=== PATIENT | male | born 1965 | race Caucasian/White ===

== ENCOUNTER 2024-09-29 17:38 | Emergency (ER) | payer OTHER, SELFPAY ==
[2024-09-29 17:46] VITALS: BP 116/87
[2024-09-29 17:55] VITALS: BP 104/81
[2024-09-29 18:00] VITALS: BP 116/74
[2024-09-29] MEDS: NSS 1000 IV (18:16)
[2024-09-29] MEDS: CARDIZEM 15 MG IV (18:17)
[2024-09-29 18:20] LABS: % Basophils 0.3 % (0-2); % Eosinophils 1.8 % (0-6); % Immature Granulocytes 0.5 % (0-0.5); % Lymphocytes 25.1 % (20.5-51.1); % Monocytes 5.7 % (1.7-9.3); % Neutrophils 66.6 % (42.2-75.2); Absolute Eosinophils 0.2 10^3/uL (0-0.7); Absolute Immature Granulocytes 0.1 10^3/uL (0-0.05); Absolute Lymphocytes 2.6 10^3/uL (1.2-3.4); Absolute Monocytes 0.6 10^3/uL (0.1-0.6); Absolute Neutrophils 6.8 10^3/uL (1.4-6.5); Hematocrit 45.9 % (39.0-52.0); Hemoglobin 15.6 g/dL (13.0-18.0); Mean Corpuscular Hgb 30.9 pg (27.0-31.0); Mean Corpuscular Volume 90.9 fL (80.0-94.0); Mean Platelet Volume 9.5 fL (7.4-10.4); Nucleated Red Blood Cells % 0 % (-); Platelet Count 248 10^3/uL (130-400); Red Blood Cell Count 5.05 10^6/uL (4.70-6.10); Red Cell Dist. Width 11.9 % (11.5-14.5); White Blood Cell Count 10.1 10^3/uL (4.8-10.8)
[2024-09-29 18:29] VITALS: BP 112/74
[2024-09-29 18:38] LABS: ALT (SGPT) 22 U/L (0-50); AST (SGOT) 27 U/L (17-59); Albumin 4.4 g/dl (3.5-5.0); Alkaline Phosphatase 69 U/L (38-126); Blood Urea Nitrogen 20 mg/dl (9-20); Calcium 9.3 mg/dl (8.4-10.2); Carbon Dioxide 25 mmol/L (22-30); Chloride 98 mmol/L (98-107); Glucose 148 mg/dl (70-99); Potassium 3.9 mmol/L (3.5-5.1); Sodium 133 mmol/L (135-145); Total Bilirubin 1.2 mg/dl (0.2-1.3); Total Protein 6.8 g/dl (6.3-8.2); eGFR > 60.00
[2024-09-29 19:00] VITALS: BP 112/79
--- NOTE | 2024-09-29 19:46 | ED.GENMED ---
History of Present Illness
General
Chief Complaint: Heart Rate Problem
Time Seen by Provider: 09/29/24 17:50
History of Present Illness
History of Present Illness:
59-year-old male presents the emergency department for evaluation of heart palpitations and lightheadedness that began at 2 PM today. He states he has had the symptoms frequently in the past but they tend to resolve within several minutes. No
chest pain or shortness of breath. Denies any recent fevers. Denies illicit drug use or alcohol use
Past History
Past History
ED Past Medical History: HTN
ED Past Surgical History: Orthopedic
Social History
Tobacco: Non-smoker
Alcohol: Occasional
Personal:
Living: with family
Employment: Employed
Review of Systems
Review of Systems
Allergies reviewed?: Yes
All Other Systems: ROS reviewed and negative except as documented in HPI and ROS
Phy Exam
Physical Exam
Physical Exam:
GEN: Well appearing, NAD, WDWN
HEENT: Oral mucosa moist, no scleral icterus
Cardiac: Tachycardic, regular, no murmur
Lung: No respiratory distress, no tachypnea
MSK: No gross deformity or injuries
Skin: Good color, no pallor or jaundice, no rashes
Neuro: AO x3, moves all extremities freely
Psych: Calm, cooperative
Course
Orders/Labs/Results
Orders:
Orders
09/29/24 17:38
Electrocardiogram (*1) Urgent
Reason for Study: Palpitations
EKG- Treatment ONCE
09/29/24 18:07
Complete Blood Count/With Diff Urgent
Comprehensive Metabolic Panel Urgent
Free T4 Urgent
TSH Reflex To Free T4 Urgent
09/29/24 18:10
0.9% Sodium Chloride 1000 ml [Nss] 1,000 ml IV BOLUS
Diltiazem HCl [Cardizem] 15 mg IV NOW STA
Abnormal Lab Results
09/29/24
18:07
Abs Immat Gran (auto) 0.1 H 10^3/uL
(0-0.05)
Absolute Neuts (auto) 6.8 H 10^3/uL
(1.4-6.5)
Sodium 133 L mmol/L
(135-145)
Glucose 148 H mg/dl
(70-99)
TSH (Reflex) 0.10 L uIU/ml
(0.47-4.68)
09/29/24 18:07
09/29/24 18:07
Vital Signs
Initial and Last Documented VS:
Initial Vital Signs
Temp Pulse Resp BP Pulse Ox
98.4 F 160 18 116/87 98
09/29/24 17:46 09/29/24 17:46 09/29/24 17:46 09/29/24 17:46 09/29/24 17:46
Last Documented Vital Signs
Temp Pulse Resp BP Pulse Ox
98.4 F 92 18 112/79 96
09/29/24 17:46 09/29/24 19:15 09/29/24 19:15 09/29/24 19:00 09/29/24 19:15
MDM/Problems Addressed
MDM/Problems Addressed:
EKG appears to be junctional tachycardia versus a slow rate SVT. Patient was given 1 dose of IV of diltiazem and converted abruptly. Remains asymptomatic in the ED. No indication for anticoagulants. Will have him follow-up as an outpatient with
cardiology. Discussed his subclinical hyperthyroidism and need for follow-up with his primary care physician although free T4 is normal thus no indication that this is what provoked his SVT
*Critical Care Note
Total Time (30-74mins, 75-104mins- exclusive of procedures): Not Applicable
ED Attending Note
-
Portions of this chart may have been created with voice recognition software.� Occasional wrong word or��sound alike� substitutions may have occurred due to the inherent limitations of voice recognition software.
Discharge Plan
Departure
Patient Disposition: Home (Routine Discharge)
Date of Disposition: 09/29/24
Time of Disposition: 19:47
Patient with high blood pressure during this ER visit?: No
Discharge Problem:
Paroxysmal supraventricular tachycardia
Instructions: Supraventricular tachycardia (SVT)
Referrals:
Reji Espinoza MD [Active] -
Jorge Amador CRNP [Family Provider] -
Activity Restrictions/Additional Instructions:
Follow up with your primary doctor regarding the thyroid test results
Interventions
Interventions:
*Risk Screen - Suicide Last Done: 09/29/24 17:46
*Neglect/Abuse Screening Last Done: 09/29/24 17:46
*Nursing Disposition Last Done: 09/29/24 20:02
ED- Cardiac Assessment Last Done: 09/29/24 18:25
ED- Pulmonary Assessment Last Done: 09/29/24 18:25
Discharge Date and Time
Discharge Date/Time: 09/29/24 20:02
Print Language: INDONESIAN
[2024-09-29 20:00] LABS: Free T4 1.44 ng/dl (0.78-2.19)
== END 2024-09-29 20:02 | disposition home or self-care (01) ==
LOC: EMR 17:38
PROVIDERS: Physician Assistant; EMERGENCY PHYSICIAN Emergency Medicine
DX: I47.19 Other supraventricular tachycardia (principal); I10 Essential (primary) hypertension; E07.89 Other specified disorders of thyroid
CPT/HCPCS: 96374; 96361; 99284; 80053; 84439; 84443; 85025; 93005

== ENCOUNTER → 2024-10-28 06:58 | Outpatient (REF) | payer OTHER, SELFPAY | LOC: RCS 06:58 | DX: I47.19 Other supraventricular tachycardia (principal); R00.2 Palpitations | CPT/HCPCS: 93225; 93226; 93306 ==

== ENCOUNTER 2024-11-19 10:39 | Emergency (ER) | payer OTHER, SELFPAY ==
[2024-11-19 10:40] VITALS: BP 139/89
[2024-11-19 12:35] VITALS: BP 124/90
--- NOTE | 2024-11-19 13:10 | ED.GENMED ---
History of Present Illness
General
Chief Complaint: Heart Rate Problem
Time Seen by Provider: 11/19/24 12:40
History of Present Illness
History of Present Illness:
59-year-old male presents the emergency department for evaluation of heart palpitations that been ongoing for the past hour. Symptoms abruptly resolved after being triaged. Was seen in this ER a few months ago for SVT, has a scheduled cardiology
follow-up in 2 weeks. Underwent an outpatient Holter monitor and echocardiogram that were unremarkable. Currently feels well
Past History
Past History
ED Past Medical History: HTN
ED Past Surgical History: Orthopedic
Social History
Tobacco: Non-smoker
Alcohol: Occasional
Personal:
Living: with family
Employment: Employed
Review of Systems
Review of Systems
Allergies reviewed?: Yes
All Other Systems: ROS reviewed and negative except as documented in HPI and ROS
Phy Exam
Physical Exam
Physical Exam:
GEN: Well appearing, NAD, WDWN
HEENT: Oral mucosa moist, no scleral icterus
Cardiac: Regular rate
Lung: No respiratory distress, no tachypnea
MSK: No gross deformity or injuries
Skin: Good color, no pallor or jaundice, no rashes
Neuro: AO x3, moves all extremities freely
Psych: Calm, cooperative
Course
Orders/Labs/Results
Orders:
Orders
11/19/24 10:40
ECG [Electrocardiogram (*1)] Urgent
Reason for Study: Palpitations
EKG- Treatment ONCE
11/19/24 12:25
11/19/24 12:25
Vital Signs
Initial and Last Documented VS:
Initial Vital Signs
Temp Pulse Resp BP Pulse Ox
97.6 F 138 16 139/89 97
11/19/24 10:40 11/19/24 10:40 11/19/24 10:40 11/19/24 10:40 11/19/24 10:40
Last Documented Vital Signs
Temp Pulse Resp BP Pulse Ox
97.6 F 86 19 124/90 98
11/19/24 10:40 11/19/24 12:36 11/19/24 12:36 11/19/24 12:35 11/19/24 12:36
MDM/Problems Addressed
MDM/Problems Addressed:
Patient remained stable in the ED on my evaluation. Likely recurrent paroxysmal SVT. Will add metoprolol on a as needed basis pending cardiology follow-up
*Critical Care Note
Total Time (30-74mins, 75-104mins- exclusive of procedures): Not Applicable
ED Attending Note
-
Portions of this chart may have been created with voice recognition software.� Occasional wrong word or��sound alike� substitutions may have occurred due to the inherent limitations of voice recognition software.
Discharge Plan
Departure
Patient Disposition: Home (Routine Discharge)
Date of Disposition: 11/19/24
Time of Disposition: 13:10
Patient with high blood pressure during this ER visit?: No
Discharge Problem:
Paroxysmal supraventricular tachycardia
Instructions: Supraventricular tachycardia (SVT)
Prescriptions:
New
metoprolol tartrate 25 mg tablet
25 mg PO DAILY PRN (Reason: palpitations) Qty: 20 0RF
Referrals:
Jorge Amador CRNP [Family Provider] -
Activity Restrictions/Additional Instructions:
Take the metoprolol only when your fast heart rate begins, if it does not resolve within 90 minutes to 2 hours please come to the ER for reevaluation
Interventions
Interventions:
*Risk Screen - Suicide Last Done: 11/19/24 10:42
*General Assessment Last Done: 11/19/24 13:26
*Neglect/Abuse Screening Last Done: 11/19/24 10:42
*ED- Fall Risk Assessment Last Done: 11/19/24 13:26
*ED COVID-19 Vaccine History Last Done: 11/19/24 13:26
*Nursing Disposition Last Done: 11/19/24 13:26
ED- Cardiac Assessment Last Done: 11/19/24 13:26
ED- Pulmonary Assessment Last Done: 11/19/24 13:26
Discharge Date and Time
Discharge Date/Time: 11/19/24 13:28
Print Language: BULGARIAN
== END 2024-11-19 13:28 | disposition home or self-care (01) ==
LOC: EMR 10:39
PROVIDERS: EMERGENCY PHYSICIAN Emergency Medicine
DX: I47.19 Other supraventricular tachycardia (principal); I10 Essential (primary) hypertension
CPT/HCPCS: 99283; 93005

== ENCOUNTER → 2024-12-22 14:20 | Outpatient (REF) | payer OTHER, SELFPAY | LOC: RCS 14:20 | PROVIDERS: ATTENDING PHYSICIAN Internal Medicine Cardiovascular Disease | DX: I10 Essential (primary) hypertension (principal) | CPT/HCPCS: 93017 ==

== ENCOUNTER 2025-03-15 08:17 | Day surgery (SDC) | payer OTHER, SELFPAY ==
[2025-03-10 08:12] VITALS: BMI 31.1
[2025-03-10 08:48] LABS: Hematocrit 46.7 % (39.0-52.0); Hemoglobin 15.9 g/dL (13.0-18.0); Mean Corp Hgb Conc. 34.0 g/dL (33.0-37.0); Mean Corpuscular Volume 93.8 fL (80.0-94.0); Nucleated Red Blood Cells % 0 % (-); Platelet Count 223 10^3/uL (130-400); Red Cell Dist. Width 11.9 % (11.5-14.5)
[2025-03-10 09:32] LABS: ALT (SGPT) 21 U/L (0-50); AST (SGOT) 24 U/L (17-59); Albumin 4.7 g/dl (3.5-5.0); Alkaline Phosphatase 69 U/L (38-126); Blood Urea Nitrogen 17 mg/dl (9-20); Calcium 9.3 mg/dl (8.4-10.2); Carbon Dioxide 27 mmol/L (22-30); Chloride 104 mmol/L (98-107); Estimated Creatinine Clearance 114 ml/min; Glucose 104 mg/dl (70-99); Magnesium 2.0 mg/dl (1.6-2.3); Potassium 4.4 mmol/L (3.5-5.1); Sodium 138 mmol/L (135-145); Total Protein 7.3 g/dl (6.3-8.2); eGFR > 60.00
--- NOTE | 2025-03-10 10:01 | HPS.HSE ---
Family Physician
-
Family Physician: Christian Amador
Chief Complaint
-
Paroxysmal supraventricular tachycardia.
History of Present Illness
The patient is a 60 year old male presenting today for paroxysmal supraventricular tachycardia. He does report a history of disturbing palpitations associated with this diagnosis. He reports his palpitations are brief; however, he does
note 2 episodes of these palpitations in September 2024 and again in October 2024 for which that episode lasted much longer. He describes a rapid heart beat sensation with an associated lump in his throat and lightheadedness. He has required 2 ED
evaluations secondary to his arrhythmia. He is on current pharmacological therapy with Metoprolol Tartrate as needed. Fortunately, he has not needed this medication recently. He is interested in pursuing with SVT ablation for further arrhythmia
management. He denies any current complaints today such as chest pain, shortness of breath, nausea, vomiting, diarrhea, dizziness, cough, sore throat, or fever.
Medical History
Past Medical History
Past Medical History: Reports Other
Additional Past Medical History:
1. Paroxysmal supraventricular tachycardia, pharmacological therapy with Metoprolol Tartrate as needed.
2. Hypertension.
3. Hyperlipidemia.
4. Obstructive sleep apnea, improving with intentional weight loss.
5. Colon polyps.
6. Hemorrhoids.
7. Lumbar degenerative disc disease.
8. Left femoral condyle fracture, status post remote surgical repair.
9. Rhinophyma, status post excision.
10. Anxiety.
11. Obesity, BMI 31.1.
Past Surgical History: Reports Other
Additional Past Surgical History:
1. Left femoral condyle fracture repair.
2. Rhinophyma excision.
3. Vasectomy.
4. [place] teeth extraction.
5. Dental extractions.
6. Multiple colonoscopies.
Social History
Tobacco: Non-smoker
Alcohol: Other (Rare use reported. )
Personal:
Living: Other (He lives with his in a 2 story home. His sister resides in their in-law suite. )
Family History
Family History: CAD
Allergies / Home Medications
Allergy/Medication List:
Home medications:
1. Amlodipine 10 mg p.o. every evening.
2. Aspirin 81 mg p.o. every evening.
3. Cholecalciferol 125 mcg p.o. daily.
4. Lisinopril 40 mg p.o. every evening.
5. Metoprolol Tartrate 25 mg p.o. daily as needed.
Allergies: No known allergies.
Review of Systems
-
A 12 point ROS was completed and negative except as noted: Yes
Physical Exam
Vital Signs
Blood pressure 149/87. Heart rate 80. Respirations 18. Pulse ox 97% on room air.
Height 5 feet, 10 inches. Weight 98.2 kg. BMI 31.1.
Physical Exam
General: Well Developed, Well Nourished and No Apparent Distress
HEENT: NormoCephalic, Moist mucous membranes, PERRLA and Other (Surgical scar on nose noted. )
Respiratory: Clear
Cardiac: Regular Rhythm
GI: Soft, Non Tender, Non Distended and Other (Obese. )
Musculoskeletal: No Edema and Normal Gait & Station
Skin: Warm and Dry
Neuro: AO x 3 and Nonfocal/grossly intact
Laboratory Results
-
03/10/25 08:19
03/10/25 08:19
Laboratory Results
Total Bilirubin 1.2 mg/dl (0.2-1.3) 03/10/25 08:19
AST 24 U/L (17-59) 03/10/25 08:19
ALT 21 U/L (0-50) 03/10/25 08:19
Alkaline Phosphatase 69 U/L (38-126) 03/10/25 08:19
Magnesium 2.0.
EKG 03/10/2025: Sinus rhythm. Left axis deviation. When compared to the EKG of 11/19/2024, no significant change was found.
Exercise stress test 12/22/2024: Normal stress test.
Echocardiogram 10/28/2024: Normal left ventricular size, wall thickness, and systolic function. No regional wall motion abnormalities are seen. Left ventricular ejection fraction is 67% by Lan's method of discs. Normal diastolic function.
Impression/Plan
-
IMPRESSION/PLAN:
1. Supraventricular tachycardia: The patient is in need of an SVT ablation with Dr. Jason Vieyra on 03/15/2025. The benefits and risks of the procedure have been explained to the patient. The patient understands these risks and wishes to proceed.
He is aware to take no medications the morning of his ablation. He will hold his Metoprolol starting 03/10/2025.
[2025-03-15] VITALS (10 sets, daily range): BP systolic 119–142; BP diastolic 79–93
--- NOTE | 2025-03-15 10:37 | ITS.CL.ABL ---
Survey Questionnaire Designer - Ablation
Ablation
Procedure Report:
Primary Physician: Dr Jorge Amador
Primary Turner Machine Operator: Dr Charbel Espinoza
Procedure Date: 03/15/2025
Procedure
Electrophysiology Study with SVT ablation
Left atrial recording / pacing
IV drug for arrhythmia induction
Patient History
Patient is a pleasant 60-year-old male with a past medical history significant for hypertension, dyslipidemia, family history of cardiovascular disease and symptomatic paroxysmal SVT.
Method
After informed consent was obtained, the patient was brought to the EP lab in a post-absorptive, non-sedated state. A peripheral IV was in place. Continuous electrocardiography, blood pressure and pulse oximetry monitoring was initiated and
cardioversion / defibrillator electrodes were positioned on the chest in an AP orientation. A 'time-out' was called. Conscious sedation was administered with the assistance of the anesthesia services, and local anesthesia was given at the femoral
vein access sites.
Using modified Seldinger technique, vascular access was achieved and sheaths were placed using ultrasound-guided access. Multipolar catheters were advanced to the coronary sinus, His bundle recording position, right ventricle, and high right
atrium. Following the determination of baseline conduction intervals, comprehensive EP study was performed. Pacing and recording from the RA, RV, HBE, and CS / LA was performed.
For arrhythmia details, see below.
Fluoroscopy time:
7.4 min; 25.64 mGy; DAP 4.19
Total RF time:
[ ] min
Estimated Blood Loss
5 mL
Complications
None
At the end of the procedure, all catheters and sheaths were removed and hemostasis was assured with [id number] stitch for both groins and protamine was used for reversal. The patient was returned to the recovery area in stable condition.
Access Sites:
Left Femoral Vein: 3 sheaths (7 Fr, 6 Fr, 6 Fr)
Right Femoral Vein: 2 sheaths (8 Fr upsized to 11.5 Fr, 9 Fr)
Baseline Intervals:
Rhythm: SR
MO: 188 ms
AH: 85 ms
HV: 53 ms
QRS: 104 ms
QT: 409 ms
QTc: 441 ms
A-A: 859 ms
R-R: 859 ms
Post-Procedure Intervals:
MO: 195 ms
AH: 95 ms
HV: 46 ms
QRS: 105 ms
QT: 379 ms
QTc: 411 ms
A-A: 849 ms
R-R: 849 ms
AV Conduction:
- AVWB at 400 msec
- VAWB at 440 msec
Refractory Periods
- AVNERP: 600/320 ms
- AERP: 600/220 ms
Procedure Synopsis:
The patient entered the room in sinus rhythm. Following access as noted above, catheters were placed in position. Threshold testing was performed. Para-Hisian pacing demonstrated jared response. Patient had VA Wenckebach cycle length of 440 ms
with AV Wenckebach cycle length at 400 ms. With initial pacing from HRA, patient had spontaneous atrial fibrillation which is not known to him. Initially, this was not sustained. However, patient had AF lasting 30 seconds. Synchronized 200 J
direct-current cardioversion was performed with faith of sinus rhythm. HRA catheter was removed. Atrial fibrillation did not recur for the remainder of the procedure. Single atrial extrastimuli was performed from the proximal CS catheter.
No arrhythmia was induced at baseline. No AH jump was noted. Single echo beats were noted. Isoproterenol was infused. Following repeat of atrial single axis to midline, tachycardia was induced at a cycle length of 430 ms. This was characterized
as an A on V tachycardia. Overdrive ventricular pacing demonstrated a VAV response with a PPI minus TCL greater than 115 and SA minus VA time greater than 85. Patient spontaneous termination of this arrhythmia. Based on electrophysiology study,
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 Isoproterenol was discontinued, 8 Sami short sheath was exchanged for a 11.5 long steerable sheath. Heparin was given for goal ACT 300�400. HD grid was advanced in the right atrium and
electroanatomic mapping was performed in sinus rhythm. Area of the slow pathway was identified as well as area of the HIS bundle/cloud with careful annotation of this area. HD grid was removed and the TactiFlex D/F SE irrigated catheter was
advanced in the right atrium. RFA was performed at 25 W with slow flow and with careful monitoring of impedance, temperature, AV conduction. EGM's were identified in the area of the slow pathway region by ablation catheter with a 1:3�1:5, A: V
ratio. Ablation was performed in this region and slow junctional beats were noted. There was no loss of AV conduction during ablation. AH and HV remained unchanged from preprocedure to after ablation. Following the waiting period, isoproterenol
was infused and electrophysiology study performed. No arrhythmias were induced. Following isoproterenol washout, EP study were performed again with arrhythmia induction. Catheters were removed. Protamine was provided for reversal. Hemostasis
achieved with [id number] stitch and manual pressure at both groin sites.
Recommendations
- If patient meeting clinical criteria, anticipate same-day discharge
- Bedrest with straight-leg precautions 4 hours
- Continue home medications as indicated
- Follow-up in office as scheduled
Jason Vieyra DO, FACC, RS
Clinical Cardiac Electrophysiology
cc: Dr Jorge Amador; Dr Charbel Espinoza
[2025-03-15 12:44] LABS: ACT-LR - POC 294 Seconds (116-155)
[2025-03-15 12:58] LABS: ACT-LR - POC 285 Seconds (116-155)
[2025-03-15 13:13] LABS: ACT-LR - POC 284 Seconds (116-155)
[2025-03-15 13:34] LABS: ACT-LR - POC 277 Seconds (116-155)
[2025-03-15 13:43] LABS: ACT-LR - POC 150 Seconds (116-155)
--- NOTE | 2025-03-15 15:20 | PTCARENOTE ---
Patient transferred from EP lab to recovery room. Rash/hives noted from from stickers. PANTRY GOODS MAKER and MD at bedside and aware. Patient denies pain or itchiness around hives. Benadryl ordered. VSS will continue to monitor. at bedside.
--- NOTE | 2025-03-15 15:23 | PTCARENOTE ---
Prior to administering Benadryl it was noted that rash/hive had disappeared. FISH HATCHERY SUPERVISOR aware. Patient denies any symptoms from the rash. Patient decided to refuse Benadryl at this time.
== END 2025-03-15 18:06 | disposition home or self-care (01) ==
LOC: CATH 08:17
PROVIDERS: ATTENDING PHYSICIAN Internal Medicine Cardiovascular Disease; FAMILY PHYSICIAN Internal Medicine Cardiovascular Disease; OTHER PHYSICIAN Internal Medicine Cardiovascular Disease
DX: I47.10 Supraventricular tachycardia, unspecified (principal); I10 Essential (primary) hypertension; E78.5 Hyperlipidemia, unspecified; G47.33 Obstructive sleep apnea (adult) (pediatric); Z86.0100 Personal history of colon polyps, unspecified; Z87.19 Personal history of other diseases of the digestive system; E66.9 Obesity, unspecified; Z68.31 Body mass index [BMI] 31.0-31.9, adult; F41.9 Anxiety disorder, unspecified; M51.369 Other intervertebral disc degeneration, lumbar region without mention of lumbar back pain or lower extremity pain; Z79.82 Long term (current) use of aspirin; Z79.899 Other long term (current) drug therapy; I48.91 Unspecified atrial fibrillation
CPT/HCPCS: C1732; C1730; C1894; C1769; C1766; C1892; 36415; 80053; 83735; 85025; 85347; 93005; 93623; 93653